=== PATIENT | female | born 1950 | race African-American/Black ===

== ENCOUNTER → 2018-04-24 | Outpatient (CLI) | payer OTHER ==
[~2018-04-24] MED LIST: ACETYL SALICYL500 GM PO; HYDROCHLOROTHIA25 M2 PO; IBUPROFEN 600600 M1 PO; LEVOTHYROXIN0.025 MG PO; NEXIUM40 MG PO; NORVASC5 MG PO; ONDANSETRON HCL4 M2 PO
== END ==
LOC: PET 13:57
DX: C34.91 Malignant neoplasm of unspecified part of right bronchus or lung (principal); R91.8 Other nonspecific abnormal finding of lung field

== ENCOUNTER → 2018-04-28 | Outpatient (CLI) | payer OTHER ==
--- NOTE | ~2018-04-28 | 2DMMODE ---
[facility] [place] [address] 2 D/M-MODE ECHOCARDIOGRAM Name: JAIR JEAN Room #: REG [facility]#: [id number] Admission: 04/28/18 Attend Phys: Ralph Beebe Discharge: Date of : 48 Date of Service: 04/28/18 1502 Report #: [id number] THIS REPORT FOR: //name// APPROVED REPORT Study performed: 04/28/2018 13:20:43 EXAM: Comprehensive 2D, Doppler, and color-flow Echocardiogram Patient Location: Out-Patient Status: routine BSA: 1.41 HR: 106 bpm BP: 122/80 mmHg Rhythm: Atrial Fibrillation Other Information Study Quality: Good Risk Factors: Cardiac Risk Factors: HTN 2D Dimensions RVDd: 29.58 mm IVSd: 10.69 (7-11mm) LVOT Diam: 20.47 (18-24mm) LVDd: 35.81 mm PWd: 10.68 (7-11mm) Ascending Ao: 30.85 (22-36mm) LVDs: 24.52 (25-40mm) Aortic Root: 35.64 mm IVC: 19.00 mm Volumes Left Atrial Volume (Systole) Single Plane 4CH: 25.58 mL Single Plane 2CH: 34.07 mL LA ESV Index: 25.00 mL/m2 Aortic Valve AoV Peak Brandon.: 1.58 m/s AO Peak Gr.: 11.34 mmHg LVOT Max P.69 mmHg LVOT Max V: 1.08 m/s ATIYA Vmax: 2.24 cm2 Mitral Valve E/A Ratio: 1.0 MV Decel. Time: 165.99 ms MV E Max Brandon.: 0.88 m/s [facility] [address] [place] [address] 2 D/M-MODE ECHOCARDIOGRAM Name: JAIR JEAN Room #: [facility]#: [id number] Admission: 04/28/18 Attend Phys: Ralph Beebe Discharge: Date of : 48 Date of Service: 04/28/18 1502 Report #: [id number] MV A Brandon.: 0.91 m/s MV PHT: 48.14 ms IVRT: 93.43 ms Pulmonary Valve PV Peak Brandon.: 1.14 m/s PV Peak Gr.: 5.29 mmHg ME End Vmax: 1.40 m/s Tricuspid Valve TR Peak Brandon.: 3.17 m/s RAP Estimate: 5.00 mmHg TR Peak Gr.: 40.08 mmHg PA Pressure: 45.00 mmHg Left Ventricle The left ventricle is normal size. There is normal left ventricular wall thickness. The left ventricular systolic function is normal. The left ventricular ejection fraction is within the normal range. LVEF is 65-70%. This study is not technically sufficient to allow evaluation of the LV diastolic function due to atrial fibrillation. Right Ventricle The right ventricle is normal size. The right ventricular systolic function is normal. Atria The left atrium size is normal. The right atrium size is normal. Aortic Valve Aortic valve is calcified. Mild aortic regurgitation. There is no aortic valvular stenosis. Mitral Valve The mitral valve is normal in structure. Trace mitral regurgitation. No evidence of mitral valve stenosis. Tricuspid Valve The tricuspid valve is normal in structure. Mild to moderate tricuspid regurgitation. Estimated PAP of 45 mmHg. Pulmonic Valve The pulmonary valve appears normal in structure. Mild pulmonic regurgitation. [employer] [facility] [address] [place] [address] 2 D/M-MODE ECHOCARDIOGRAM Name: JAIR JEAN Room #: REG [facility] [id number] Admission: 04/28/18 Attend Phys: Ralph Beebe Discharge: Date of : 48 Date of Service: 04/28/18 1502 Report #: [id number] The aortic root is normal in size. The ascending aorta is normal in size. IVC is normal in size and collapses >50% with inspiration. Pericardium There is no pericardial effusion. <Conclusion> The left ventricle is normal size. LVEF is 65-70%. Aortic valve is calcified. Mild aortic regurgitation. The mitral valve is normal in structure. Trace mitral regurgitation. The tricuspid valve is normal in structure. Mild to moderate tricuspid regurgitation. Estimated PAP of 45 mmHg. The pulmonary valve appears normal in structure. Mild pulmonic regurgitation. There is no pericardial effusion. <ELECTRONICALLY SIGNED> By: Ralph Landa MD 04/28/181501 01 01 Ralph Landa MD /INF
== END ==
LOC: CV 10:06
DX: I08.2 Rheumatic disorders of both aortic and tricuspid valves (principal); I48.91 Unspecified atrial fibrillation; Z86.79 Personal history of other diseases of the circulatory system

== ENCOUNTER → 2018-05-09 | Outpatient (CLI) | payer OTHER ==
[2018-05-09] VITALS (11 sets, daily range): BP systolic 90–123; BP diastolic 51–70
[~2018-05-09] VITALS: Ht 157.5 cm; Wt 44.5 kg
[~2018-05-09] MED LIST changes: +CARDIZEM CD120 MG PO; +ROCALTROL0.25 MCG PO
--- NOTE | ~2018-05-09 | PATH ---
[facility] [place] [address] PATHOLOGY RPT PROCEDURE Name: KLAUDIA JEAN Room #: REG [facility].#: [id number] Admission: 05/09/18 Date of : 48 Discharge: Report #: [id number] Path Case #: [id number] [facility] Accession Number: [id number] . 01 Material submitted: . LEFT LUNG MASS . 01 Clinical history: . Left lung mass . 02 Diagnosis: Lung "lung biopsy": - Non-small cell carcinoma favor adenocarcinoma. See comment. (SHA:ling; 05/10/2018) QMS/05/11/2018 . 02 Comment: This case was also reviewed by Dr. Ada Forbes. . A call was made to Dr. Rupert Velasquez's office on 05/10/2018 at 2:00 p.m. and a request was made to call back. Tia Yepez at the office called on 05/11/2018 at 10am and was notified of the diagnosis. . Immunoperoxidase stains p40, is negative, TTF1 positive, ck7 positive and CK20 negative These findings are consistent with adenocarcinoma. . (SHA:ling; 05/10/2018) . 02 Electronically signed: . Gregory Chilel MD, Pathologist NPI- [id number] . 01 Gross description: . The specimen is received in formalin, labeled "Klaudia Jean, left lung BX", are four fragments of stanton-white needle cores ranging from 0.3 cm up to 0.7 cm in length with an average 0.1 cm aggregate. The specimen is entirely submitted in A1-A3. ([facility]; 05/09/2018) SHS/SHS . 02 Pathologist provided ICD-10: C34.92 . 02 CPT . 728988, [id number], [id number] [place] [address] PATHOLOGY RPT PROCEDURE Name: KLAUDIA JEAN JIMMY Room #: REG [facility]#: [id number] Admission: 05/09/18 Date of : 48 Discharge: Report #: [id number] Path Case #: [id number] Specimen Comment: A courtesy copy of this report has been sent to Specimen Comment: [phone], . Specimen Comment: Report sent to / DR VELASQUEZ Performed at: [address], [place], [place] [id number] MD Eric Jones MD Phone: [phone] Performed at: [address] [id number] MD Lynn Rocha MD Phone: [phone]
[2018-05-09 09:01] LABS: HEMATOCRIT 32.1 % (37.0-47.0); HEMOGLOBIN 10.6 gm/dL (12.0-15.0); MCH 22.6 pg (26.0-34.0); MCHC 32.9 g/dL (28.0-37.0); MCV 68.8 fL (80.0-100.0); RBC 4.67 mil/uL (4.20-5.00); RDW 17.8 % (10.5-14.5); WBC 5.1 thou/uL (4.0-11.0)
[2018-05-09 09:09] LABS: CALCIUM 8.6 mg/dL (8.5-10.1); CREATININE 0.5 mg/dL (0.6-1.0)
[2018-05-09 09:12] LABS: APTT 28.8 Seconds (24.5-32.8); PROTIME 10.7 Seconds (9.3-11.4)
[2018-05-09 09:14] LABS: POTASSIUM 2.9 mmol/L (3.5-5.1)
== END | disposition home or self-care (01) ==
LOC: CAT 08:11 → LAB 08:11 → CAT 11:10
PROVIDERS: Radiology Vascular & Interventional Radiology
DX: C34.92 Malignant neoplasm of unspecified part of left bronchus or lung (principal); Z85.118 Personal history of other malignant neoplasm of bronchus and lung; I10 Essential (primary) hypertension; E78.5 Hyperlipidemia, unspecified; J43.9 Emphysema, unspecified; M81.0 Age-related osteoporosis without current pathological fracture; I48.91 Unspecified atrial fibrillation; G43.909 Migraine, unspecified, not intractable, without status migrainosus; K21.9 Gastro-esophageal reflux disease without esophagitis; F17.210 Nicotine dependence, cigarettes, uncomplicated; Z82.49 Family history of ischemic heart disease and other diseases of the circulatory system; Z98.890 Other specified postprocedural states; Z79.899 Other long term (current) drug therapy; Z88.6 Allergy status to analgesic agent; Z79.82 Long term (current) use of aspirin

== ENCOUNTER 2018-09-19 17:20 | Inpatient (IN) | payer OTHER ==
[~2018-09-19] VITALS: Ht 157.5 cm; Wt 51.1 kg
[2018-09-19 17:29] VITALS: BP 185/97
[2018-09-19 18:02] LABS: HEMATOCRIT 43.1 % (37.0-47.0); HEMOGLOBIN 14.5 gm/dL (12.0-15.0); MCH 28.8 pg (26.0-34.0); MCHC 33.6 g/dL (28.0-37.0); MCV 85.6 fL (80.0-100.0); PLATELET COUNT 220 thou/uL (150-400); RBC 5.04 mil/uL (4.20-5.00); RDW 15.6 % (10.5-14.5); WBC 6.3 thou/uL (4.0-11.0)
[2018-09-19 18:09] LABS: ANION GAP 12 mmol/L (7-16); BUN 12 mg/dL (7-18); CHLORIDE 95 mmol/L (98-107); CO2 27 mmol/L (21-32); CREATININE 0.4 mg/dL (0.6-1.0); GLUCOSE 103 mg/dL (74-106); SODIUM 134 mmol/L (136-145)
[2018-09-19 18:11] LABS: POTASSIUM 4.6 mmol/L (3.5-5.1)
[2018-09-19 18:18] LABS: ABSOLUTE NEUTROPHILS 4.8 thou/uL (1.4-8.2); PLATELET ESTIMATE NORMAL
[2018-09-19 18:20] LABS: TROPONIN-I <0.06 ng/mL (<0.06)
[2018-09-19] MEDS ORDERED: HYDROCHLOROTHIA25 M2 PO (18:24)
[2018-09-19] MEDS ORDERED: TOPROL XL25 MG PO (18:25)
[2018-09-19] MEDS ORDERED: METHIMAZOLE5 MG PO (18:25)
[2018-09-19 18:46] LABS: BE(vivo) 3.7 mmol/L (-2 to +3); HCO3 27.8 mmol/L (22.0-26.0); PCO2 40.1 mmHg (35.0-45.0); PO2 58.7 mmHg (80.0-100.0); pH 7.458 (7.360-7.450); sO2 91.8 % (92.0-98.0)
[2018-09-19 22:56] VITALS: BP 116/73
[2018-09-19 23:07] VITALS: BP 116/73
[2018-09-19 23:53] VITALS: BP 103/67
--- NOTE | 2018-09-20 02:44 | NUR ---
Received pt from ED at 2215. Pt resting in bed. No episode of SOA. VSS. AOX4. No skin issues besides surgical scar healed below right scapula. Stand by Assist. Hasdanya had an episode of tachypnea since receiving breathing treatments. Shes running SR on TELE. Daughter is at bedside. No identified issues at the moment. Will continue to monitor.
[2018-09-20 03:11] VITALS: BP 137/84
[2018-09-20 07:59] VITALS: BP 166/91
--- NOTE | 2018-09-20 08:08 | EKG ---
[address] [address] ELECTROCARDIOGRAM REPORT Name: MIRANDAJAIRMADHURI MARQUEZ Room #: 457-P ADM IN M.R.#: [id number] ������������������ Admission: 09/19/18 ������������������ Attend Phys: Rupert Diaz MD Discharge: ������������������ Date of : 48 Report #: [id number] ����������������������������������������������������������������� [id number] THIS REPORT FOR: //name// [facility] ED Test Date: 2018-09-19 Test Time: 17:30:04 Pat Name: JAIR JEAN Department: Room: 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 : 1950 Requested By: Sumaya Harris Order Number: [id number] MD: Jacob Berumen Measurements Intervals [place] Rate: 90 P: 69 MS: 178 QRS: 42 QRSD: 98 T: 52 QT: 377 QTc: 462 Interpretive Statements Sinus rhythm Left atrial enlargement Left ventricular hypertrophy Compared to ECG 03/19/2018 11:02:00 Atrial abnormality now present Atrial premature complex(es) no longer present Poor R-wave progression no longer present Electronically Signed On 09-20-2018 8:07:52 CDT by Jacob Berumen [email or web address] ��������������������������������������������� <ELECTRONICALLY SIGNED> ���������������������������������������� By: Jacob Berumen MD ��������������������������������������������� 09/20/18 0807 1730 1730 Jacob Berumen MD /EPI
[2018-09-20 10:46] VITALS: BP 166/91
--- NOTE | 2018-09-20 11:45 | NUR ---
Assumed pt care this am, pt was very persistent that she did not want to be NPO and wanted to go out have her cigarette and coffee. Explained to the pt the procedures that were ordered that required that she be NPO until RAMÓN was done. Dr. Diaz had seen her prior to this event, pt failed to inform the MD of her concerns. Pt verbalized her intent of not complying and would like to leave do to some commitments. Explained to the pt and her daughter who was at bedside with the process of AMA, AMA was signed by the pt. Oral meds and IV given. Non of the diagnostics and labs were performed. Pt has now left the unit.
== END 2018-09-20 12:30 | disposition home or self-care (01) | DRG 189 ==
LOC: ER 17:20 → EROBS 22:23 → 4W 22:23 → ENTRNSPT 09-20 11:04 → EDTRNSPTSTS 09-20 11:05 → 4W 09-20 12:30
PROVIDERS: Student in an Organized Health Care Education/Training Program; ADMIT Family Medicine
DX: J96.00 Acute respiratory failure, unspecified whether with hypoxia or hypercapnia (principal); E43 Unspecified severe protein-calorie malnutrition; G43.909 Migraine, unspecified, not intractable, without status migrainosus; I48.91 Unspecified atrial fibrillation; J44.9 Chronic obstructive pulmonary disease, unspecified; M81.0 Age-related osteoporosis without current pathological fracture; E89.0 Postprocedural hypothyroidism; I10 Essential (primary) hypertension; E78.5 Hyperlipidemia, unspecified; F17.210 Nicotine dependence, cigarettes, uncomplicated; F12.90 Cannabis use, unspecified, uncomplicated; E05.90 Thyrotoxicosis, unspecified without thyrotoxic crisis or storm; Z85.118 Personal history of other malignant neoplasm of bronchus and lung; Z88.6 Allergy status to analgesic agent; Z79.899 Other long term (current) drug therapy
CPT/HCPCS: 10045

== ENCOUNTER 2018-09-22 15:13 | Inpatient (IN) | payer OTHER ==
[~2018-09-22] VITALS: Ht 157.5 cm; Wt 50.0 kg
[2018-09-22 15:13] VITALS: BP 108/79
[~2018-09-22 15:13] MED LIST changes: +METHIMAZOLE5 MG PO; +TOPROL XL25 MG PO
[2018-09-22 16:36] LABS: HEMATOCRIT 41.7 % (37.0-47.0); HEMOGLOBIN 14.3 gm/dL (12.0-15.0); MCHC 34.3 g/dL (28.0-37.0); MCV 84.5 fL (80.0-100.0); PLATELET COUNT 180 thou/uL (150-400); RBC 4.93 mil/uL (4.20-5.00); RDW 15.7 % (10.5-14.5); WBC 11.4 thou/uL (4.0-11.0)
[2018-09-22 17:01] LABS: ALBUMIN 3.5 g/dL (3.4-5.0); CREATININE 0.7 mg/dL (0.6-1.0); DIRECT BILIRUBIN 0.1 mg/dL (<0.1-0.3); TOTAL BILIRUBIN 0.3 mg/dL (<0.1-1.0); TOTAL PROTEIN 7.7 g/dL (6.4-8.2)
[2018-09-22 17:04] LABS: CALCIUM 5.8 mg/dL (8.5-10.1); POTASSIUM 2.5 mmol/L (3.5-5.1)
[2018-09-22 17:07] LABS: URINE BLOOD 2+ (Negative); URINE CLARITY CLEAR; URINE COLOR YELLOW; URINE GLUCOSE-RANDOM* NEGATIVE (Negative); URINE KETONES NEGATIVE (Negative); URINE LEUKOCYTES NEGATIVE (Negative); URINE NITRITE NEGATIVE (Negative); URINE PROTEIN (DIPSTICK) 2+ (Negative); URINE SPECIFIC GRAVITY >= 1.030 (1.005-1.035)
[2018-09-22 17:11] LABS: ICTOTEST (BILI CONFIRMATORY) Negative (Negative); URINE BILIRUBIN NEGATIVE (Negative)
[2018-09-22 17:26] LABS: BACTERIA 1-9 Few /HPF (None Seen); CASTS None Seen /LPF (None Seen); CRYSTALS None Seen /LPF (None Seen); SQUAMOUS 0-3 Few /LPF (0-3); URINE RBC 0-2 Rare /HPF (0-2); URINE WBC 0-5 Rare /HPF (0-5)
[2018-09-22 17:33] LABS: ABSOLUTE NEUTROPHILS 8.9 thou/uL (1.4-8.2)
[2018-09-22 17:34] LABS: ANISOCYTOSIS 1+; BURR CELLS OCCASIONAL; SCHISTOCYTES OCCASIONAL
[2018-09-22 18:25] VITALS: BP 142/75
[2018-09-22 20:06] VITALS: BP 147/69
[2018-09-22 20:25] VITALS: BP 124/86
[2018-09-22 20:27] LABS: MAGNESIUM 1.7 mg/dL (1.8-2.4); PHOSPHORUS 5.5 mg/dL (2.5-4.9)
[2018-09-22 20:53] LABS: CREATININE 0.7 mg/dL (0.6-1.0); PHOSPHORUS 5.7 mg/dL (2.5-4.9)
[2018-09-22 21:26] LABS: CREATININE 0.6 mg/dL (0.6-1.0); POTASSIUM 3.2 mmol/L (3.5-5.1)
[2018-09-22 23:20] VITALS: BP 137/73
--- NOTE | 2018-09-23 01:50 | NUR ---
PATIENT IS ALERT AND ORIENTED. PATIENT IS SBA. PATIENT HAS A SLIGHT FEVER COOLING MEASURES TAKEN. PATIENT RECENTLY FINISHED RADIATION THERAPY AT .ELECTROLYTES HAVE BEEN REPLACED. PATIENT HAS BEEN SLEEPING COMFORTABLY IN BED [facility].
[2018-09-23 03:51] LABS: ALBUMIN 2.9 g/dL (3.4-5.0); CREATININE 0.6 mg/dL (0.6-1.0); POTASSIUM 3.9 mmol/L (3.5-5.1); TOTAL BILIRUBIN 0.3 mg/dL (<0.1-1.0); TOTAL PROTEIN 6.4 g/dL (6.4-8.2)
[2018-09-23 03:55] LABS: CALCIUM 5.9 mg/dL (8.5-10.1)
[2018-09-23 03:56] VITALS: BP 156/66
[2018-09-23 04:12] LABS: HEMATOCRIT 40.1 % (37.0-47.0); HEMOGLOBIN 13.3 gm/dL (12.0-15.0); MCH 29.2 pg (26.0-34.0); MCHC 33.2 g/dL (28.0-37.0); RBC 4.55 mil/uL (4.20-5.00); RDW 15.9 % (10.5-14.5); WBC 7.5 thou/uL (4.0-11.0)
[2018-09-23 07:31] VITALS: BP 133/89
[2018-09-23 11:31] VITALS: BP 174/98
[2018-09-23 16:17] VITALS: BP 183/106
--- NOTE | 2018-09-23 18:12 | NUR ---
Assumed pt care this am, pt vebalized that she has a headache due to her coughing, pt refued acetamenophen stating this has no effect on her. Referred to Dr. Diaz , prescribed tessalon pearls and toradol.
[2018-09-23 18:21] VITALS: BP 138/76
[2018-09-23 19:40] VITALS: BP 163/97
[2018-09-24] VITALS (9 sets, daily range): BP systolic 140–184; BP diastolic 90–119
--- NOTE | 2018-09-24 03:11 | NUR ---
ASSUMED PT CARE AROUND 1900. A&OX4. C/O GENERALIZED PAIN AND HEADACHE DUE TO COUGHING. PRN PAIN AND COUGH MEDICATION GIVEN INDICATED. PT WAS GIVEN THROAT LOZENGE TO HELP WITH COUGH, BUT SHE STATED IT GAVE HER INDIGESTION. PT STATED SHE DID NOT WANT ANY MEDICATION TO HELP WITH HER INDIGESTION. PT SLEPT OFF AND ON DURING THE NIGHT. BP ELEVATED; CALLED ANSWERING SERVICE FOR DR VELASQUEZ. NO CALL BACK YET RECEIVED. WILL CONTINUE TO MONITOR BP. UP W/ SBA FOR SAFETY. STEADY GAIT. PROGRESSING SLOWLY TOWARD POC GOALS. WILL CONTINUE TO MONITOR FURTHER.
[2018-09-24 06:22] LABS: CALCIUM 6.4 mg/dL (8.5-10.1); CREATININE 0.4 mg/dL (0.6-1.0); MAGNESIUM 1.4 mg/dL (1.8-2.4); PHOSPHORUS 3.4 mg/dL (2.5-4.9)
[2018-09-24 06:24] LABS: POTASSIUM 2.9 mmol/L (3.5-5.1)
--- NOTE | 2018-09-24 20:07 | NUR ---
ASSUMED CARE OF PT AT O700. ASSESSMENT COMPLETED. A&O,X4. C/O NECK PAIN AND HEADACHE, WILL GIVE ORDERED. HX HTN, ELEVATED BP - PHYSICIAN NOTIFIED. ONE TIME ORDER FOR BP MEDS GIVEN ORDERED. POTASSIUM LOW, FOLLOWING ELECTROLYTE PROTOCOL. PT REQUESTING MEDS TO HELP SLEEP TONIGHT, PHYSICIAN NOTIFIED, NEW BEDTIME ORDER.
[2018-09-25 04:25] VITALS: BP 149/89
--- NOTE | 2018-09-25 04:53 | NUR ---
ASSUMED PT CARE AROUND 1900. A&OX4. PT VERY ANXIOUS, RESTLESS, UNCOMFORTABLE AT BEGINNING OF SHIFT. BP ELEVATED. C/O EXCRUCIATING HEADACHE WELL NAUSEA. PT REFUSED ANY PAIN MEDICATION. PT DID HAVE SOME DRY HEEVES. NOTIFIED DR VELASQUEZ. ORDERS RECEIVED. ZOFRAN AND ATIVAN GIVEN INDICATED. PT LATER STATED SHE FELT MUCH BETTER. BP IMPROVED. PT HAS SLEPT THROUGHOUT THE NIGHT. RESP EVEN AND UNLABORED. POTASSIUM AND MAGNESIUM REPLACED PER ELECTRLYTE PROTOCOL. PROGRESSING SLOWLY TOWARD POC GOALS. WILL CONTINUE TO MONITOR FURTHER.
[2018-09-25 05:58] LABS: ALBUMIN 3.1 g/dL (3.4-5.0); CALCIUM 6.3 mg/dL (8.5-10.1); CREATININE 0.5 mg/dL (0.6-1.0); PHOSPHORUS 4.4 mg/dL (2.5-4.9)
[2018-09-25 06:04] LABS: POTASSIUM 4.4 mmol/L (3.5-5.1)
[2018-09-25 07:50] VITALS: BP 125/87
--- NOTE | 2018-09-25 15:16 | NUR ---
ASSESSMENT: CM REVIEWED CHART AND MET WITH PATIENT AT THE BEDSIDE. PT IS ALERT AND ORIENTED X4. PT REPORTS LIVING IN A HOUSE WITH HER DAUGHTER. PT REPORTS 3 STEPS WITH HANDRAILS TO ENTER. PT REPORTS ONCE INSIDE ABOUT 14 STEPS WITH HANDRAILS TO THE UPPER LEVEL WHERE THE BEDROOMS ARE. PT REPORTS SHE IS VERY INDEPENDENT AND DOES NOT HAVE ANY DME OR THE NEED FOR IT. PT REPORTS THAT SHE HAS NOT HAD HH IN THE PAST NOR BEEN TO A SNF/ACUTE REHAB. CM DISCUSSED ROLE. PT DOES NOT ANTICIPATE HAVING ANY NEEDS FROM CM AND PLANS ON RETURNING HOME AT DISCHARGE.
[2018-09-25 17:00] VITALS: BP 133/84
--- NOTE | 2018-09-25 18:33 | NUR ---
PATIENT ALERT AND ORIENTED. PATIENT SLEPT UNTIL ABOUT 0930 THIS AM. PATIENT HAD NO HEADACHE OR PAIN AND IN A PLEASANT MOOD. PATIENT CONTINUES TO HAVE COUGH AND SIDES AND STOMACHE ACHE FROM COUGHING AND PREVIOUS EMEMSIS. NO EMESIS TODAY. DAUGHTER AT BEDSIDE THIS EVENING.
[2018-09-25 19:01] VITALS: BP 133/81
--- NOTE | 2018-09-26 03:07 | NUR ---
ASSUMED PT CARE AROUND 1900. A&OX4. DENIES ANY PAIN OR N/V TONIGHT. ATE BEDTIME SNACK; TOLERATED WELL. UP AD CHARLES TO BTR. COUGH IMPROVING. PT HAS BEEN SLEEPING MOST OF THE NIGHT. RESP EVEN AND UNLABORED. PROGRESSING TOWARD POC GOALS. WILL CONTINUE TO MONITOR FURTHER.
[2018-09-26 04:11] VITALS: BP 143/88
[2018-09-26 06:50] LABS: ALBUMIN 2.8 g/dL (3.4-5.0); CALCIUM 6.5 mg/dL (8.5-10.1); CREATININE 0.5 mg/dL (0.6-1.0); MAGNESIUM 1.8 mg/dL (1.8-2.4); PHOSPHORUS 4.6 mg/dL (2.5-4.9); POTASSIUM 3.7 mmol/L (3.5-5.1)
[2018-09-26 07:22] VITALS: BP 140/88
[2018-09-26] MEDS ORDERED: PANTOPRAZOLE SO40 M1 PO (12:27)
[2018-09-26 12:58] VITALS: BP 140/88
--- NOTE | 2018-09-26 12:58 | NUR ---
on-going assessment: CM REVIEWED CHART. PT HAS ORDERS TO DISCHARGE HOME TODAY. PT REPORTS HAVING NO NEEDS FROM CM AND REPORTS HER DAUGHTER IS TO PICK HER UP.
--- NOTE | 2018-09-28 09:37 | HC ---
[facility] [place] [address] [address] CONSULTATION Name: JAIR JEAN Room #: 355-P [facility] IN M.R.#: [id number] Admission: 09/22/18 ������������������ Attend Phys: Rupert Diaz MD Discharge: 09/26/18 ������������������ Date of : 48 Report #: [id number] THIS REPORT FOR: //name// CC: Rupert Diaz REASON FOR THE CONSULTATION: Electrolyte issues. REASON FOR THE PRESENTATION: Shortness of breath and cough. HISTORY OF PRESENT ILLNESS: This is a 68-year-old with past medical history of right lung cancer post-surgery, recently diagnosed left-sided lung cancer who has not been feeling well after receiving radiotherapy. She reported feeling weak and dizzy. She has not been eating well. She had progressive shortness of breath and presented to the Emergency Room to further evaluate. She admitted to cough with no hemoptysis. She has very poor p.o. intake. She did have some nausea and vomiting. She has hypertension and is maintained on hydrochlorothiazide. She is status post thyroidectomy and is maintained on methimazole. On presentation, she was hypokalemic, hypomagnesemic and hypocalcemic and I am being consulted to manage those issues. MEDICATIONS: 1. Methimazole. 2. Metoprolol. 3. Hydrochlorothiazide. PAST MEDICAL HISTORY: 1. Brain aneurysm. 2. Thyroidectomy. 3. Hypertension. 4. Hyperlipidemia. 5. Right lung lobectomy. 6. Emphysema. 7. Left lung cancer, newly diagnosed. ALLERGIES: MORPHINE. SOCIAL HISTORY: Smoker. No drug or alcohol abuse. REVIEW OF SYSTEMS: GENERAL: No fever or chills. CARDIOVASCULAR: No chest pain or palpitation. PULMONARY: Significant for cough but no hemoptysis. GASTROINTESTINAL: Decreased p.o. intake. GENITOURINARY: No frequency or urgency. MUSCULOSKELETAL: Cramps in both hands and numbness in both hands. PHYSICAL EXAMINATION: [facility] [address] [place] [address] CONSULTATION Name: JAIR JEAN Room #: 355-P [facility] [id number] Admission: 09/22/18 ������������������ Attend Phys: Rupert Diaz MD Discharge: 09/26/18 ������������������ Date of : 48 Report #: [id number] GENERAL: Alert and oriented, in no apparent distress. VITAL SIGNS: Blood pressure was 180/79, temperature 37.4 and pulse rate was 91. HEAD AND NECK: Emaciated and cachectic. CHEST: No crackles. CARDIOVASCULAR: No rub. ABDOMEN: Soft and nontender. LOWER EXTREMITIES: No edema. LABORATORY DATA: Laboratory values reviewed. PTH is normal. Albumin is 2.9. Calcium is 5.9, magnesium was 1.7 and potassium was 3.2. ASSESSMENT, IMPRESSION AND PLAN: 1. Hypocalcemia. 2. Hypokalemia. 3. Hypomagnesemia. 4. Recently diagnosed lung cancer. 5. Her electrolyte issues are expected given her decreased p.o. intake, diuretics. 6. She did have symptomatic hypocalcemia and I will supplement. 7. Rectify potassium. 8. Rectify magnesium. 9. Discontinue hydrochlorothiazide. 10. Check vitamin D level and replete if indicated. For unclear reasons to me, the patient was maintained on Rocaltrol; however, this has been discontinued and she does not recall being told that she had issues with calcium in the past. She has never been evaluated for her electrolyte issues and I will initiate the appropriate workup. ��������������������������������������������� <ELECTRONICALLY SIGNED> ���������������������������������������� By: Getachew Luna MD ��������������������������������������������� 09/28/18 0937 0841 1008 Getachew Luna MD /nt
== END 2018-09-26 13:48 | disposition home or self-care (01) | DRG 640 ==
LOC: ER 15:13 → EROBS 17:54 → 3W 17:54
PROVIDERS: Emergency Medicine; Hospitalist; Nurse Practitioner; ADMIT Family Medicine
DX: E87.6 Hypokalemia (principal); E43 Unspecified severe protein-calorie malnutrition; J98.59 Other diseases of mediastinum, not elsewhere classified; C34.92 Malignant neoplasm of unspecified part of left bronchus or lung; E87.1 Hypo-osmolality and hyponatremia; E83.51 Hypocalcemia; G43.909 Migraine, unspecified, not intractable, without status migrainosus; I48.91 Unspecified atrial fibrillation; J44.9 Chronic obstructive pulmonary disease, unspecified; M81.0 Age-related osteoporosis without current pathological fracture; I10 Essential (primary) hypertension; E78.5 Hyperlipidemia, unspecified; E89.0 Postprocedural hypothyroidism; E83.42 Hypomagnesemia; F17.210 Nicotine dependence, cigarettes, uncomplicated; M62.838 Other muscle spasm; E07.9 Disorder of thyroid, unspecified; E05.90 Thyrotoxicosis, unspecified without thyrotoxic crisis or storm; Z88.6 Allergy status to analgesic agent; Z68.20 Body mass index [BMI] 20.0-20.9, adult; Z79.899 Other long term (current) drug therapy
CPT/HCPCS: 10879